=== PATIENT | female | born 1955 | race Caucasian/White ===

== ENCOUNTER 2017-11-19 22:45 | Emergency (ER) | payer OTHER | END 2017-11-20 01:24 | disposition home or self-care (01) | LOC: E/R 22:45 | DX: M54.5 Low back pain (principal) | CPT/HCPCS: 99283; Z7502 ==

== ENCOUNTER 2017-11-28 07:34 | Emergency (ER) | payer OTHER | END 2017-11-28 09:57 | disposition home or self-care (01) | LOC: FTE 07:34 | DX: M54.42 Lumbago with sciatica, left side (principal); M54.41 Lumbago with sciatica, right side | CPT/HCPCS: 99283; Z7502 ==

== ENCOUNTER 2018-01-21 14:29 | Emergency (ER) | payer OTHER ==
[2018-01-21] MEDS: SOD CHLORIDE 0.9% 1,000 ML IV (15:23)
[2018-01-21] MEDS: ONDANSETRON 4 MG INJ IV (15:23)
[2018-01-21] MEDS: morphine 4 MG/ML VIAL IV (15:23)
[2018-01-21 15:42] LABS: ADD MAN DIFF? NO
[2018-01-21 15:43] LABS: BASOPHIL # 0.1 10^3/ul (0.0-0.1); BASOPHILS % 0.7 % (0.0-2.0); EOSINOPHILS # 0.5 10^3/ul (0.0-0.5); EOSINOPHILS % 3.9 % (0.0-7.0); HEMATOCRIT 39.5 % (37.0-47.0); HEMOGLOBIN 12.8 g/dl (12.0-16.0); LYMPHOCYTES # 3.1 10^3/ul (0.8-2.9); LYMPHOCYTES % 25.2 % (15.0-51.0); MEAN CORPUSCULAR HEMOGLOBIN 30.9 pg (29.0-33.0); MEAN CORPUSCULAR HGB CONC 32.4 g/dl (32.0-37.0); MEAN CORPUSCULAR VOLUME 95.4 fl (82.0-101.0); MEAN PLATELET VOLUME 10.1 fl (7.4-10.4); MONOCYTE # 1.2 10^3/ul (0.3-0.9); MONOCYTES % 9.8 % (0.0-11.0); NEUTROPHIL # 7.3 10^3/ul (1.6-7.5); NEUTROPHILS % 60.1 % (39.0-77.0); PLATELET COUNT 325 10^3/UL (140-415); RED BLOOD COUNT 4.14 10^6/ul (4.20-5.40); RED CELL DISTRIBUTION WIDTH 12.8 % (11.5-14.5)
[2018-01-21 15:43] LABS: WHITE BLOOD COUNT 12.2 10^3/ul (4.8-10.8)
[2018-01-21 16:00] LABS: ALANINE AMINOTRANSFERASE 77 IU/L (13-69); ALBUMIN 4.6 g/dl (3.3-4.9); ALBUMIN/GLOBULIN RATIO 1.43; ALKALINE PHOSPHATASE 100 IU/L (42-121); ANION GAP 16 (8-16); ASPARTATE AMINO TRANSFERASE 72 IU/L (15-46); BILIRUBIN,INDIRECT 0.2 mg/dl (0-1.1); BILIRUBIN,TOTAL 0.2 mg/dl (0.2-1.3); BLOOD UREA NITROGEN 15 mg/dl (7-20); CALCIUM 9.7 mg/dl (8.4-10.2); CARBON DIOXIDE 30 mmol/L (21-31); CHLORIDE 101 mmol/L (97-110); CREATININE 0.92 mg/dl (0.44-1.00); GLUCOSE 109 mg/dl (70-220); LIPASE 52 U/L (23-300); POTASSIUM 3.9 mmol/L (3.5-5.1); SODIUM 143 mmol/L (135-144); TOTAL PROTEIN 7.8 g/dl (6.1-8.1)
[2018-01-21] MEDS: KETOROLAC 30 MG INJ IV (16:17)
[2018-01-21 17:12] LABS: URINE BLOOD (Dip) POC 2+ (NEGATIVE); URINE GLUCOSE (Dip) POC Negative (NEGATIVE); URINE KETONES (Dip) POC Negative (NEGATIVE); URINE LEUKOCYTE EST (Dip) POC Trace (NEGATIVE); URINE NITRITE (Dip) POC Negative (NEGATIVE); URINE TOTAL PROTEIN POC 2+ (NEGATIVE)
== END 2018-01-21 17:39 | disposition home or self-care (01) ==
LOC: FTE 14:29
DX: N20.0 Calculus of kidney (principal)
CPT/HCPCS: 36415; 74176; 80053; 81003; 83690; 85025; 96374; 96375; 99285-25

== ENCOUNTER 2018-01-24 15:45 | Emergency (ER) | payer OTHER ==
[2018-01-24] MEDS: ONDANSETRON 4 MG INJ IV (17:30)
[2018-01-24] MEDS: KETOROLAC 30 MG INJ IV (17:32)
[2018-01-24] MEDS: morphine 4 MG/ML VIAL IV (17:32)
== END 2018-01-24 18:05 | disposition home or self-care (01) ==
LOC: E/R 15:45
DX: N20.1 Calculus of ureter (principal)
CPT/HCPCS: 96374; 96375; 99284-25

== ENCOUNTER 2018-02-19 22:17 | Emergency (ER) | payer MEDICARE, OTHER ==
[2018-02-20] MEDS: SOD CHLORIDE 0.9% 1,000 ML IV (00:50)
[2018-02-20] MEDS: morphine 2 MG INJ IV (00:50)
[2018-02-20 01:08] LABS: ADD MAN DIFF? NO
[2018-02-20 01:10] LABS: ABNORMAL IP MESSAGE 1; BASOPHIL # 0.1 10^3/ul (0.0-0.1); BASOPHILS % 0.5 % (0.0-2.0); EOSINOPHILS # 0.7 10^3/ul (0.0-0.5); EOSINOPHILS % 4.4 % (0.0-7.0); HEMATOCRIT 37.2 % (37.0-47.0); HEMOGLOBIN 12.4 g/dl (12.0-16.0); LYMPHOCYTES % 34.2 % (15.0-51.0); MEAN CORPUSCULAR HEMOGLOBIN 31.6 pg (29.0-33.0); MEAN CORPUSCULAR HGB CONC 33.3 g/dl (32.0-37.0); MEAN CORPUSCULAR VOLUME 94.7 fl (82.0-101.0); MEAN PLATELET VOLUME 9.5 fl (7.4-10.4); MONOCYTE # 1.3 10^3/ul (0.3-0.9); MONOCYTES % 8.6 % (0.0-11.0); NEUTROPHIL # 7.6 10^3/ul (1.6-7.5); PLATELET COUNT 338 10^3/UL (140-415); RED BLOOD COUNT 3.93 10^6/ul (4.20-5.40); RED CELL DISTRIBUTION WIDTH 12.7 % (11.5-14.5)
[2018-02-20 01:10] LABS: WHITE BLOOD COUNT 14.7 10^3/ul (4.8-10.8)
[2018-02-20 01:26] LABS: ADD UMIC YES; UR ASCORBIC ACID 20 mg/dL (NEGATIVE); UR BILIRUBIN (Dip) NEGATIVE (NEGATIVE); UR BLOOD (Dip) 1+ mg/dL (NEGATIVE); UR CALCIUM OXALATE CRYSTAL FEW /HPF (NONE SEEN); UR CLARITY CLEAR (CLEAR); UR COLOR STRAW (YELLOW); UR GLUCOSE (Dip) NEGATIVE (NEGATIVE); UR KETONES (Dip) NEGATIVE (NEGATIVE); UR LEUKOCYTE ESTERASE (Dip) 2+ Leu/ul (NEGATIVE); UR MUCUS FEW /HPF (NONE SEEN); UR NITRITE (Dip) NEGATIVE (NEGATIVE); UR RBC 6 /HPF (0-5); UR SQUAMOUS EPITHELIAL CELL FEW /HPF (FEW); UR TOTAL PROTEIN (Dip) NEGATIVE (NEGATIVE); UR UROBILINOGEN (Dip) NEGATIVE (NEGATIVE); UR WBC 24 /HPF (0-5)
[2018-02-20 01:28] LABS: ALANINE AMINOTRANSFERASE 60 IU/L (13-69); ALBUMIN 4.1 g/dl (3.3-4.9); ALKALINE PHOSPHATASE 110 IU/L (42-121); ANION GAP 11 (8-16); ASPARTATE AMINO TRANSFERASE 39 IU/L (15-46); BILIRUBIN,INDIRECT 0.1 mg/dl (0-1.1); BILIRUBIN,TOTAL 0.1 mg/dl (0.2-1.3); BLOOD UREA NITROGEN 26 mg/dl (7-20); CALCIUM 9.8 mg/dl (8.4-10.2); CARBON DIOXIDE 28 mmol/L (21-31); CHLORIDE 106 mmol/L (97-110); CREATININE 0.75 mg/dl (0.44-1.00); GLUCOSE 102 mg/dl (70-220); POTASSIUM 4.1 mmol/L (3.5-5.1); SODIUM 141 mmol/L (135-144); TOTAL PROTEIN 7.5 g/dl (6.1-8.1)
[2018-02-20 01:41] LABS: POSITIVE DIFF @See below
[2018-02-20] MEDS: KETOROLAC 15 MG INJ IV (03:41)
[2018-02-20] MEDS: morphine 4 MG/ML VIAL IV ×2 (03:41→03:59)
== END 2018-02-20 04:04 | disposition home or self-care (01) ==
LOC: FTE 22:17 → E/R 02-20 04:04
DX: N39.0 Urinary tract infection, site not specified (principal); N70.11 Chronic salpingitis
CPT/HCPCS: 76830; 76856; 80053; 81001; 85025; 96374; 96375; 99285-25

== ENCOUNTER 2018-03-24 03:21 | Emergency (ER) | payer OTHER, MEDICARE | END 2018-03-24 04:19 | disposition home or self-care (01) | LOC: FTE 03:21 | DX: S90.121A Contusion of right lesser toe(s) without damage to nail, initial encounter (principal); X58.XXXA Exposure to other specified factors, initial encounter; Y92.9 Unspecified place or not applicable | CPT/HCPCS: 99283 ==

== ENCOUNTER 2018-12-02 12:25 | Inpatient (IN) | payer OTHER ==
[2018-12-02] MEDS ORDERED: POLYMYXIN/BACITRACIN 1L IRRIG (15:18)
[2018-12-02] MEDS ORDERED: GELATIN SIZE 100 SPONGE (15:18)
[2018-12-02] MEDS ORDERED: THROMBIN (BOVINE) 5,000 UNIT VIAL TP (15:18)
[2018-12-02] MEDS ORDERED: LIDOCAINE 1%/EPI (1:100,000) (MDV) 20 ML (15:18)
[2018-12-02] MEDS ORDERED: LIDOCAINE 1% (MPF) 30 ML INJ (15:19)
[2018-12-02] MEDS ORDERED: morphine 4 MG/ML VIAL IV (16:33)
[2018-12-02] MEDS: morphine 2 MG INJ IV (16:46)
[2018-12-02] MEDS ORDERED: SUCCINYLCHOLINE CHLORIDE 100 MG/5 ML SYG IV (16:58)
[2018-12-02] MEDS ORDERED: LIDOCAINE 2% (SDV) 5 ML INJ (16:58)
[2018-12-02] MEDS ORDERED: PROPOFOL 20 ML (16:58)
[2018-12-02] MEDS ORDERED: MIDAZOLAM 1 MG/ML 2 ML INJ (16:59)
[2018-12-02] MEDS ORDERED: CEFAZOLIN 1 GM INJ (17:16)
[2018-12-02] MEDS ORDERED: ROCURONIUM 50 MG INJ (17:16)
[2018-12-02] MEDS ORDERED: EPHEDrine 25 MG/5 ML SYG (17:16)
[2018-12-02] MEDS ORDERED: FAMOTIDINE 20 MG INJ (17:18)
[2018-12-02] MEDS ORDERED: ONDANSETRON 4 MG INJ (17:18)
[2018-12-02] MEDS ORDERED: DEXAMETHASONE 4 MG/ML 5 ML INJ (17:18)
[2018-12-02] MEDS ORDERED: NEOSTIGMINE 3 MG/3 ML SYRINGE (17:32)
[2018-12-02] MEDS ORDERED: GLYCOPYRROLATE 0.4 MG INJ (17:32)
[2018-12-02] MEDS ORDERED: SUGAMMADEX SODIUM 200 MG/2 ML VIAL IV (17:37)
[2018-12-02] MEDS ORDERED: FENTAnyl 50 MCG/ML VIAL (17:46)
[2018-12-02] MEDS ORDERED: NALOXONE (0.4 MG/ML) INJ IV (18:00)
[2018-12-02] MEDS: CEFAZOLIN 1 GM/50 ML (PMX) 50 ML IVPB ×2 (18:00→23:23)
[2018-12-02] MEDS ORDERED: ACETAMINOPHEN 325 MG TAB PO ×2 (18:00→21:30)
[2018-12-02] MEDS ORDERED: PROCHLORPERAZINE 10 MG INJ IV (18:30)
[2018-12-02] MEDS ORDERED: FENTAnyl 50 MCG/ML VIAL IV ×3 (18:30)
[2018-12-02] MEDS ORDERED: DIPHENHYDRAMINE 50 MG INJ IV (18:30)
[2018-12-02] MEDS ORDERED: HYDROmorphONE 1 MG/5 ML IV SYRINGE IV (18:30)
[2018-12-02] MEDS: ONDANSETRON 4 MG INJ IV (18:32)
[2018-12-02] MEDS: HYDROmorphONE 1 MG/5 ML IV SYRINGE IV ×2 (18:32→19:09)
[2018-12-02] MEDS: MEPERIDINE 25 MG INJ IV (18:33)
[2018-12-02] MEDS ORDERED: ONDANSETRON 4 MG INJ IV (21:30)
[2018-12-02] MEDS: DEXTROSE 5%-0.45% NACL 1,000 ML IV (21:53)
[2018-12-02] MEDS: HYDROmorphONE 1 MG/ML SYG IV (21:53)
[2018-12-02] MEDS: GABAPENTIN 100 MG CAP PO ×2 (22:40)
[2018-12-03] MEDS: HYDROmorphONE 1 MG/ML SYG IV ×3 (03:33→18:50)
[2018-12-03 05:25] LABS: ADD MAN DIFF? NO
[2018-12-03] MEDS: CEFAZOLIN 1 GM/50 ML (PMX) 50 ML IVPB ×2 (05:26→12:08)
[2018-12-03 05:30] LABS: BASOPHILS % 0.2 % (0.0-2.0); HEMATOCRIT 36.5 % (37.0-47.0); HEMOGLOBIN 11.7 g/dl (12.0-16.0); MEAN CORPUSCULAR HGB CONC 32.1 g/dl (32.0-37.0); MEAN CORPUSCULAR VOLUME 96.6 fl (82.0-101.0); MEAN PLATELET VOLUME 9.7 fl (7.4-10.4); MONOCYTE # 0.2 10^3/ul (0.3-0.9); MONOCYTES % 1.7 % (0.0-11.0); NEUTROPHIL # 9.8 10^3/ul (1.6-7.5); NEUTROPHILS % 88.6 % (39.0-77.0); PLATELET COUNT 361 10^3/UL (140-415); RED BLOOD COUNT 3.78 10^6/ul (4.20-5.40); RED CELL DISTRIBUTION WIDTH 11.9 % (11.5-14.5)
[2018-12-03 05:58] LABS: ANION GAP 10 (5-13); BLOOD UREA NITROGEN 15 mg/dl (7-20); CALCIUM 9.4 mg/dl (8.4-10.2); CARBON DIOXIDE 25 mmol/L (21-31); CHLORIDE 105 mmol/L (97-110); CREATININE 0.55 mg/dl (0.44-1.00); Estimated GFR > 60 mL/min (>60); GLUCOSE 159 mg/dl (70-220); POTASSIUM 4.1 mmol/L (3.5-5.1); SODIUM 140 mmol/L (135-144)
[2018-12-03] MEDS: GABAPENTIN 100 MG CAP PO ×2 (08:11→21:20)
[2018-12-03] MEDS: HYDROCODONE/APAP (5/325) TAB PO ×2 (12:06→18:43)
[2018-12-03] MEDS: DEXTROSE 5%-0.45% NACL 1,000 ML IV (14:10)
[2018-12-03] MEDS: AL HYDROX/MG HYDROX/SIMETH 30 ML CUP PO (14:18)
[2018-12-03] MEDS ORDERED: GABAPENTIN 100 MG CAP PO (21:00)
[2018-12-04] MEDS: HYDROCODONE/APAP (5/325) TAB PO ×3 (04:04→18:26)
[2018-12-04] MEDS: HYDROmorphONE 1 MG/ML SYG IV ×4 (06:23→20:06)
[2018-12-04] MEDS: GABAPENTIN 100 MG CAP PO ×2 (08:42→21:26)
[2018-12-04] MEDS: BISACODYL (EC) 5 MG TAB PO (18:26)
[2018-12-04] MEDS: DOCUSATE SODIUM 100 MG CAP PO (21:26)
[2018-12-04] MEDS: NACL 0.9% 3 ML SYG IV (21:26)
[2018-12-05] MEDS: HYDROmorphONE 1 MG/ML SYG IV ×3 (04:07→18:36)
[2018-12-05] MEDS: DOCUSATE SODIUM 100 MG CAP PO (09:06)
[2018-12-05] MEDS: GABAPENTIN 100 MG CAP PO (09:06)
[2018-12-05] MEDS: BISACODYL (EC) 5 MG TAB PO (09:07)
== END 2018-12-05 19:20 | disposition home or self-care (01) | DRG 93 ==
LOC: REC 12:25 → MS1 20:10
PROC: 0JPT0MZ Removal of Stimulator Generator from Trunk Subcutaneous Tissue and Fascia, Open Approach (ICD-10-PCS; principal; 2018-12-02 15:00)
DX: T85.840A Pain due to nervous system prosthetic devices, implants and grafts, initial encounter (principal); R25.1 Tremor, unspecified; R32 Unspecified urinary incontinence; F32.9 Major depressive disorder, single episode, unspecified; G89.29 Other chronic pain; M54.30 Sciatica, unspecified side; F41.9 Anxiety disorder, unspecified
CPT/HCPCS: 80048; 85025; 86850; 86900; 86901; 88300; 93005; 97116; 97162; 97530

== ENCOUNTER 2019-01-06 12:35 | Emergency (ER) | payer OTHER ==
[2019-01-06] MEDS: HYDROmorphONE 0.5 MG/0.5 ML SYG IM (13:25)
[2019-01-06] MEDS: KETOROLAC 30 MG INJ IM (13:25)
== END 2019-01-06 14:21 | disposition left against medical advice (07) ==
LOC: FTE 12:35
DX: M54.42 Lumbago with sciatica, left side (principal)
CPT/HCPCS: 96372; 99284-25

== ENCOUNTER 2019-03-19 15:48 | Emergency (ER) | payer OTHER ==
[2019-03-19] MEDS: HYDROCODONE/APAP (10/325) TAB PO (16:42)
== END 2019-03-19 19:07 | disposition home or self-care (01) ==
LOC: FTE 15:48
DX: S83.91XA Sprain of unspecified site of right knee, initial encounter (principal); W01.0XXA Fall on same level from slipping, tripping and stumbling without subsequent striking against object, initial encounter; Y92.9 Unspecified place or not applicable
CPT/HCPCS: 73562; 99283-25

== ENCOUNTER 2019-03-31 10:47 | Emergency (ER) | payer OTHER ==
[2019-03-31 13:14] LABS: ADD MAN DIFF? NO
[2019-03-31 13:20] LABS: BASOPHIL # 0.1 10^3/ul (0.0-0.1); BASOPHILS % 0.8 % (0.0-2.0); EOSINOPHILS # 0.4 10^3/ul (0.0-0.5); HEMATOCRIT 38.8 % (37.0-47.0); HEMOGLOBIN 12.5 g/dl (12.0-16.0); LYMPHOCYTES # 2.4 10^3/ul (0.8-2.9); LYMPHOCYTES % 27.4 % (15.0-51.0); MEAN CORPUSCULAR HEMOGLOBIN 29.9 pg (29.0-33.0); MEAN CORPUSCULAR HGB CONC 32.2 g/dl (32.0-37.0); MEAN CORPUSCULAR VOLUME 92.8 fl (82.0-101.0); MEAN PLATELET VOLUME 9.6 fl (7.4-10.4); MONOCYTE # 0.6 10^3/ul (0.3-0.9); MONOCYTES % 7.2 % (0.0-11.0); NEUTROPHIL # 5.4 10^3/ul (1.6-7.5); NEUTROPHILS % 60.4 % (39.0-77.0); PLATELET COUNT 303 10^3/UL (140-415); RED BLOOD COUNT 4.18 10^6/ul (4.20-5.40)
[2019-03-31 13:20] LABS: WHITE BLOOD COUNT 8.9 10^3/ul (4.8-10.8)
[2019-03-31 13:33] LABS: ADD UMIC YES; UR ASCORBIC ACID 40 mg/dL (NEGATIVE); UR BILIRUBIN (Dip) NEGATIVE (NEGATIVE); UR BLOOD (Dip) 1+ mg/dL (NEGATIVE); UR CLARITY CLEAR (CLEAR); UR COLOR YELLOW (YELLOW); UR GLUCOSE (Dip) NEGATIVE (NEGATIVE); UR KETONES (Dip) NEGATIVE (NEGATIVE); UR LEUKOCYTE ESTERASE (Dip) NEGATIVE Leu/ul (NEGATIVE); UR NITRITE (Dip) NEGATIVE (NEGATIVE); UR RBC 15 /HPF (0-5); UR SPECIFIC GRAVITY (Dip) 1.017 (1.003-1.030); UR TOTAL PROTEIN (Dip) NEGATIVE (NEGATIVE); UR UROBILINOGEN (Dip) NEGATIVE (NEGATIVE); UR WBC 1 /HPF (0-5)
[2019-03-31] MEDS: HYDROmorphONE 1 MG/ML SYG IV (13:38)
[2019-03-31] MEDS: ONDANSETRON 4 MG INJ IV (13:38)
[2019-03-31] MEDS: SOD CHLORIDE 0.9% 1,000 ML IV (13:39)
[2019-03-31 13:49] LABS: ANION GAP 8 (5-13); BLOOD UREA NITROGEN 18 mg/dl (7-20); CALCIUM 9.5 mg/dl (8.4-10.2); CARBON DIOXIDE 28 mmol/L (21-31); CHLORIDE 106 mmol/L (97-110); CREATININE 0.59 mg/dl (0.44-1.00); Estimated GFR > 60 mL/min (>60); GLUCOSE 150 mg/dl (70-220); POTASSIUM 4.1 mmol/L (3.5-5.1); SODIUM 142 mmol/L (135-144)
== END 2019-03-31 14:54 | disposition home or self-care (01) ==
LOC: E/R 10:47
DX: N20.0 Calculus of kidney (principal); R40.2142 Coma scale, eyes open, spontaneous, at arrival to emergency department; R40.2252 Coma scale, best verbal response, oriented, at arrival to emergency department; R40.2362 Coma scale, best motor response, obeys commands, at arrival to emergency department
CPT/HCPCS: 74176; 80048; 81001; 85025; 96374; 96375; 99285-25